=== PATIENT | male | born 1955 | race Two or more races ===

== ENCOUNTER 2019-09-17 13:05 | Outpatient (CLI) | payer MEDICAID ==
[~2019-09-17] VITALS: Ht 160 cm; Wt 64.0 kg
[2019-09-17 14:47] VITALS: BP 121/72
[2019-09-17] MEDS ORDERED: CARAFATE1 G1 ORAL (14:56)
[2019-09-17] MEDS ORDERED: OMEPRAZOLE40 M1 ORAL (14:56)
[2019-09-17] MEDS ORDERED: ATORVASTATIN CA20 MG ORAL (14:56)
[2019-09-17] MEDS ORDERED: FERROUS SULFAT325 MG ORAL (14:56)
[2019-09-17] MEDS ORDERED: FAMOTIDINE20 MG ORAL (14:56)
--- NOTE | 2019-09-17 19:00 | Consultation ---
DATE OF CONSULTATION: 09/17/2019 CONSULTING PHYSICIAN: Leonard Boucher M.D. CHIEF COMPLAINT: Referral for screening colonoscopy. PAST MEDICAL HISTORY: 1. GERD. 2. Hypercholesteremia. 3. Anemia. PAST SURGICAL HISTORY: Questionable abdominal surgery in the past. MEDICATIONS: Please see medication reconciliation list. FAMILY HISTORY: No family history of GI malignancies. SOCIAL HISTORY: The patient denies any tobacco, alcohol, or drug abuse. ALLERGIES: No known allergies. REVIEW OF SYSTEMS: A 10-point review of systems was performed and positive for GERD. PHYSICAL EXAMINATION: VITAL SIGNS: Temperature 97.9, blood pressure 121/72, pulse 84, respirations 20. HEENT: Normocephalic and atraumatic. Sclerae anicteric. NECK: Supple. No evidence of obvious lymphadenopathy. CARDIOVASCULAR: Regular rate and rhythm. Plus S1 and S2. No obvious murmur. LUNGS: Clear to auscultation bilaterally. ABDOMEN: Positive bowel sounds. Soft and nontender. No rebound. No guarding. No peritoneal sign. EXTREMITIES: No cyanosis. No clubbing. No edema. ASSESSMENT AND PLAN: This is a 64-year-old male with GERD, need for screening colonoscopy. Plan, endoscopy and colonoscopy when authorization is obtained. The patient was given instruction for colonoscopy and the prep. Risks and benefits of procedure was explained to him and he understood. Plan to schedule when authorization is obtained. Leonard Boucher M.D. DR: [id number] JOB#: [id number] CC:
== END 2019-09-17 15:55 | disposition home or self-care (01) ==
LOC: PAN 13:05
DX: K21.9 Gastro-esophageal reflux disease without esophagitis (principal); E78.00 Pure hypercholesterolemia, unspecified; D64.9 Anemia, unspecified